=== PATIENT | female | born 1955 | race Two or more races ===

== ENCOUNTER 2024-12-27 09:08 | Emergency (ER) | payer OTHER ==
[~2024-12-27] VITALS: Ht 165.1 cm; Wt 74.8 kg
[2024-12-27] MEDS ORDERED: SYNTHROID88 MCG PO (09:22)
[2024-12-27] MEDS ORDERED: GABAPENTIN100 M2 PO (09:22)
[2024-12-27] MEDS ORDERED: hydrOXYzine PAMOATE 50 MG CAPSULE PO STA (10:12)
[2024-12-27] MEDS ORDERED: FAMOtidine 10 MG/ML (4ML VIAL) IV STA (10:12)
[2024-12-27] MEDS ORDERED: hydrOXYzine PAMOATE 50 MG CAPSULE PO ONE (10:24)
[2024-12-27] MEDS ORDERED: FAMOTIDINE/PF 20 MG/2 ML VIAL ONE (10:25)
[2024-12-27 10:59] LABS: HEMATOCRIT 40.4 % (36.0-45.00); HEMOGLOBIN 13.7 g/dL (12.0-15.00); MEAN CELL VOLUME 95.5 fL (80.00-100.00); MEAN CORPUSCULAR HEMOGLOBIN 32.3 pg (27.00-32.0); MEAN CORPUSCULAR HGB CONC 33.9 g/dl (32.0-36.0); PLATELET COUNT 221 K/uL (150-450); RED BLOOD COUNT 4.23 M/uL (4.00-6.00)
[2024-12-27 11:21] LABS: CALCIUM 9.1 mg/dL (8.5-10.1); CREATININE SERUM 0.74 mg/dL (0.55-1.02); GFR 78.28; POTASSIUM 3.97 mEq/L (3.5-5.1)
[2024-12-27 11:43] LABS: URINE APPEARANCE Clear; URINE BILIRRUBIN Negative (NEGATIVE); URINE BLOOD Negative; URINE COLOR Yellow; URINE GLUCOSE Negative (NEGATIVE); URINE KETONE Negative (NEGATIVE); URINE LEUKOCYTE Trace; URINE NITRATE Negative; URINE PROTEIN Negative (NEGATIVE)
[2024-12-27 11:46] LABS: URINE BACTERIA 226.4 uL (0.0-1933); URINE EPITHELIAL CELLS 21.9 uL (0.0-38.8); URINE RBC 5.5 uL (0.0-20.8); URINE WBC 10.9 uL (0.0-23.2)
[2024-12-27 11:53] LABS: URINE CAST 0.14 uL (0.0-1.40)
[2024-12-27 11:55] LABS: URINE CRYSTALS MODERATE /HPF
== END 2024-12-27 16:08 | disposition home or self-care (01) ==
LOC: ER 09:09
PROVIDERS: General Practice
DX: R10.9 Unspecified abdominal pain (principal); E03.8 Other specified hypothyroidism; F41.8 Other specified anxiety disorders
CPT/HCPCS: 36415; 76700; 96365; 99284; J3490